=== PATIENT | male | born 1940 | race Caucasian/White ===

== ENCOUNTER 2021-01-06 23:45 | Emergency (ER) | payer OTHER ==
[~2021-01-06] VITALS: Ht 188 cm; Wt 72.6 kg
[2021-01-07 01:00] LABS: ABSOLUTE NEUTROPHILS 9.4 thou/uL (1.4-8.2); BASOPHILS 0.3 % (0.0-2.0); HEMATOCRIT 29.7 % (42.0-52.0); LYMPHOCYTES 8.2 % (24.0-44.0); MCH 21.5 pg (26.0-34.0); MCHC 30.4 g/dL (28.0-37.0); MCV 70.9 fL (80.0-100.0); MONOCYTES 8.3 % (1.0-8.0); PLATELET COUNT 365 thou/uL (150-400); POLYS 83.2 % (36.0-66.0); RBC 4.19 mil/uL (4.50-6.00); RDW 19.4 % (10.5-14.5); WBC 11.3 thou/uL (4.0-11.0)
[2021-01-07] MEDS ORDERED: METOPROLOL TAR100 MG PO (01:01)
[2021-01-07] MEDS ORDERED: LIPITOR 40 MG T40 M1 PO (01:01)
[2021-01-07] MEDS ORDERED: MIRTAZAPINE45 MG PO (01:01)
[2021-01-07] MEDS ORDERED: GLIPIZIDE5 MG PO (01:02)
[2021-01-07] MEDS ORDERED: PIOGLITAZONE30 MG PO (01:02)
[2021-01-07] MEDS ORDERED: PRINIVIL20 MG PO (01:02)
[2021-01-07] MEDS ORDERED: SOLIFENACIN SUC10 MG PO (01:02)
[2021-01-07] MEDS ORDERED: TRIAMTERENE-HC1 EAC2 PO (01:02)
[2021-01-07 01:14] LABS: ANION GAP 11 mmol/L (7-16); BUN 35 mg/dL (7-18); CHLORIDE 100 mmol/L (98-107); CO2 24 mmol/L (21-32); CREATININE 1.9 mg/dL (0.7-1.3); GLUCOSE 219 mg/dL (74-106); POTASSIUM 3.7 mmol/L (3.5-5.1); SODIUM 135 mmol/L (136-145)
[2021-01-07 01:25] LABS: ALBUMIN 2.9 g/dL (3.4-5.0); MAGNESIUM 1.8 mg/dL (1.8-2.4); SGOT 29 U/L (15-37); SGPT 25 U/L (30-65); TOTAL BILIRUBIN 0.5 mg/dL (0.2-1.0); TROPONIN-I <0.06 ng/mL (<0.06)
[2021-01-07 02:59] LABS: INR 1.1; PROTIME 11.2 Seconds (9.3-11.4)
[2021-01-07 04:24] VITALS: BP 138/72
--- NOTE | 2021-01-07 07:00 | EKG ---
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 : 1940 Requested By: Apolinar Canales Order Number: [id number] MD: Roge Bowman Measurements Intervals Robbins Rate: 121 P: CA: QRS: -75 QRSD: 90 T: 95 QT: 327 QTc: 464 Interpretive Statements Atrial fibrillation Ventricular premature complex Abnormal R-wave progression, late transition Inferior infarct, old Lateral leads are also involved Baseline wander in lead(s) I,III,aVL No previous ECG available for comparison Electronically Signed On 01-07-2021 7:00:11 CHIEF TECHNICAL OFFICER by Roge Bowman [email or web address] <ELECTRONICALLY SIGNED> By: Roge Bowman MD, [facility] 01/07/21 0700 0050 0050 Roge Bowman MD, FACC /EPI
== END 2021-01-07 04:27 | disposition short-term general hospital (02) ==
LOC: ER 23:45
PROVIDERS: Emergency Medicine
DX: S06.300A Unspecified focal traumatic brain injury without loss of consciousness, initial encounter (principal); I48.0 Paroxysmal atrial fibrillation; J93.9 Pneumothorax, unspecified; I10 Essential (primary) hypertension; R29.6 Repeated falls; E11.9 Type 2 diabetes mellitus without complications; Z95.1 Presence of aortocoronary bypass graft; Z79.899 Other long term (current) drug therapy; W18.30XA Fall on same level, unspecified, initial encounter; Y93.89 Activity, other specified; Y92.89 Other specified places as the place of occurrence of the external cause; Y99.9 Unspecified external cause status